=== PATIENT | male | born 1955 | race Caucasian/White ===

== ENCOUNTER → 2016-05-11 | Day surgery (SDC) | payer BC ==
[~2016-05-11] MED LIST: ASPI1TAB69 PO; DUCO5TAB PO; FLUT1INH7 INH; LACTATED RINGER'S 1000 ML INJ 1,000 ML ONE; LOSA25TA PO; LOVA40TA PO; MONT10TA2 PO; MULTTAB67 PO; PHEN1LIQ60 PO; PROPOFOL 200 MG/20 ML AMP IV ONE
--- NOTE | 2016-05-11 08:06 | GIPROC ---
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 TOPICAL ANESTHETIC: none CONSENT: The patient understands the risks and benefits of the procedure and understands that these risks include, but are not limited to: sedation, allergic reaction, infection, perforation and/or bleeding. Alternative means of evaluation and treatment include, among others: physical exam, x-rays, and/or surgical intervention. The patient elects to proceed with this endoscopic procedure. medical equipment was checked for proper function. Hand hygiene and appropriate measures for infection prevention was taken. After the risks, benefits and alternatives of the procedure were thoroughly explained, Informed consent was verified, confirmed and timeout was successfully executed by the treatment team. The patient was anesthetized with topical anesthesia and the EG-[id number] ([id number]) endoscope was introduced through the mouth and advanced to the bulb of duodenum. On exam of the stomach small gastric mass distal near pylorus. This was biopsied. The antrum was also biopsied for h. pylori. Retroflexed views revealed no hiatal hernia. The gastroscope was then slowly withdrawn and removed. STOMACH: A smooth mass was found in the prepyloric region of the stomach. A biopsy was performed using cold forceps. ADVERSE EVENTS: There were no complications. IMPRESSIONS: 1. mass was found in the prepyloric region of the stomach; biopsy was performed 2. biopsy pending for h. pylori RECOMMENDATIONS: await biopsy results. Biopsy results will not be ready for 7-10 days. If you don't hear from us in two weeks, call our office for biopsy results. REPEAT EXAM: none Ajith Bryan MD eSigned: Ajith Bryan MD 05/11/2016 8:05 AM cc: Theodore Martinez M.D. CPT CODES: 16831 Upper gastrointestinal endoscopy including esophagus, stomach, and either the duodenum and/or jejunum as appropriate; with biopsy, single or multiple ICD CODES: 537.9 Unspecified disorder of stomach and duodenum 935.1 Foreign body in esophagus 211.1 Benign neoplasm of stomach The ICD and CPT codes recommended by this software are interpretations from the data that the clinical staff has captured with the software. The verification of the translation of this report to the ICD and CPT codes and modifiers is the sole responsibility of the health care institution and practicing physician where this report was generated. [employer] will not be held responsible for the validity of the ICD and CPT codes included on this report. [employer] assumes no liability for data contained or not contained herein. CPT is a registered trademark of the [employer]. [id number]
== END | disposition home or self-care (01) ==
LOC: ESDC 06:43
PROVIDERS: ATTEND Surgery
DX: K21.9 Gastro-esophageal reflux disease without esophagitis (principal); E66.01 Morbid (severe) obesity due to excess calories; K31.89 Other diseases of stomach and duodenum; D13.1 Benign neoplasm of stomach
CPT/HCPCS: 00740; 43239; 88305; 88312; J3010; J7120